=== PATIENT | female | born 1930 | race Caucasian/White ===

== ENCOUNTER 2016-04-19 23:35 | Emergency (ER) | payer MEDICARE, OTHER ==
[~2016-04-19] VITALS: Ht 154.9 cm; Wt 52.7 kg
[~2016-04-19 23:35] MED LIST: ENOX40DI9 SQ; GLIP5 PO; HYDR-3965 PO; INSNOV SQ; LISI-662 PO; METF10002 PO; MUPI1OIN4 NS; TEAROS OU; [UNRECOGNIZED DRUG - CODE] PO
[2016-04-20 00:29] LABS: BASOPHILS % (AUTO) 0.3 % (0.0-2.0); EOSINOPHILS % (AUTO) 0.8 % (1.0-6.0); HEMATOCRIT 33.6 % (36-46); HEMOGLOBIN 10.7 g/dL (12.0-16.0); LYMPHOCYTES # (AUTO) 2.2 K/uL (1.0-4.8); LYMPHOCYTES % (AUTO) 17.3 % (22.0-44.0); MEAN CORPUSCULAR HEMOGLOBIN 26.2 pg (26.0-34.0); MEAN CORPUSCULAR HGB CONC 31.9 G/dL (31.0-37.0); MEAN CORPUSCULAR VOLUME 82 fL (80-100); MONOCYTES # (AUTO) 1.1 K/uL (0.1-1.0); MONOCYTES % (AUTO) 8.9 % (2.0-9.0); NEUTROPHILS # (AUTO) 9.2 K/uL (1.8-7.7); NEUTROPHILS % (AUTO) 72.7 % (40.0-70.0); PLATELET COUNT (AUTO) 458 K/uL (150-450); RED CELL DISTRIBUTION WIDTH 13.9 % (11.5-14.5); WHITE BLOOD COUNT (AUTO) 12.7 K/uL (4.5-11.0)
[2016-04-20 00:31] LABS: ANION GAP 7 mmol/L (8-16); CALCIUM, TOTAL 9.2 mg/dL (8.8-10.5); CARBON DIOXIDE 32 mmol/L (22-29); CHLORIDE 99 mmol/L (98-107); CREATININE 1.57 mg/dL (0.60-1.30); GLOMERULAR FILTR. RATE CALC 31 mL/min (>60); POTASSIUM 3.9 mmol/L (3.5-5.1); SODIUM SERUM 138 mmol/L (136-145); UREA NITROGEN, BLOOD 15 mg/dL (7-18)
[2016-04-20 00:32] LABS: INR 0.9 (0.9-1.1)
[2016-04-20 00:47] LABS: B-TYPE NATRIURETIC PEPTIDE 110 pg/mL (0-100)
[2016-04-20 00:54] LABS: APPEARANCE,URINE CLEAR (CLEAR); GLUCOSE, URINE (UA) NEGATIVE (NEGATIVE); KETONES,URINE NEGATIVE (NEGATIVE); LEUKOCYTE ESTERASE ,URINE MODERATE (NEGATIVE); OCCULT BLOOD,URINE NEGATIVE (NEGATIVE); PH,URINE 7.5 (5.0-8.0); PROTEIN,URINE NEGATIVE (NEGATIVE)
[2016-04-20 00:55] LABS: ALANINE AMINOTRANSFERASE 16 U/L (12-78); ALBUMIN 3.7 g/dL (3.4-5.0); ASPARTATE AMINOTRANSFERASE 12 U/L (15-37); CREATINE KINASE MB 1.9 ng/mL (0-5); CREATINE KINASE, TOTAL 81 U/L (26-192); TOTAL PROTEIN, SERUM 7.8 g/dL (6.4-8.2)
[2016-04-20 01:09] LABS: BILIRUBIN,TOTAL 0.2 mg/dL (0.1-1.0)
[2016-04-20 01:10] LABS: ADD UA MICROSCOPIC YES
[2016-04-20 01:20] LABS: RBC,URINE 0-2 /HPF (0-2); SQUAMOUS EPITHELIAL CELL,UR Few /LPF (None Seen)
[2016-04-20 02:01] VITALS: BP 117/64
== END 2016-04-20 04:00 | disposition home or self-care (01) ==
LOC: EMS 23:38
DX: I20.8 Other forms of angina pectoris (principal); N39.0 Urinary tract infection, site not specified; I10 Essential (primary) hypertension; E11.9 Type 2 diabetes mellitus without complications; Z79.4 Long term (current) use of insulin
CPT/HCPCS: 82962; 87086; 93005; 99285

== ENCOUNTER 2016-05-01 20:04 | Inpatient (IN) | payer MEDICARE, OTHER ==
[~2016-05-01] VITALS: Ht 157.5 cm; Wt 53.0 kg
[~2016-05-01 20:04] MED LIST changes: -HYDR-3965 PO; -MUPI1OIN4 NS; -TEAROS OU
[2016-05-01] MEDS ORDERED: SITA25 PO (20:20)
[2016-05-01] MEDS ORDERED: LORA0.5T83 PO (20:20)
[2016-05-01] MEDS ORDERED: HYDR-4172 PO (20:20)
[2016-05-01 20:37] LABS: GLUCOSE,POINT OF CARE 206 MG/DL (70-110)
[2016-05-01 20:45] LABS: BASOPHILS % (AUTO) 0.7 % (0.0-2.0); EOSINOPHILS % (AUTO) 1.4 % (1.0-6.0); LYMPHOCYTES # (AUTO) 1.6 K/uL (1.0-4.8); LYMPHOCYTES % (AUTO) 19.6 % (22.0-44.0); MEAN CORPUSCULAR HEMOGLOBIN 26.9 pg (26.0-34.0); MEAN CORPUSCULAR HGB CONC 33.2 G/dL (31.0-37.0); MEAN CORPUSCULAR VOLUME 81 fL (80-100); MONOCYTES # (AUTO) 0.7 K/uL (0.1-1.0); NEUTROPHILS # (AUTO) 5.8 K/uL (1.8-7.7); NEUTROPHILS % (AUTO) 70.3 % (40.0-70.0); PLATELET COUNT (AUTO) 428 K/uL (150-450); RED CELL DISTRIBUTION WIDTH 14.1 % (11.5-14.5); WHITE BLOOD COUNT (AUTO) 8.3 K/uL (4.5-11.0)
[2016-05-01 20:54] LABS: CALCIUM, TOTAL 8.6 mg/dL (8.8-10.5); CREATININE 1.47 mg/dL (0.60-1.30); POTASSIUM 3.9 mmol/L (3.5-5.1)
[2016-05-01 21:02] LABS: LACTIC ACID 0.8 mmol/L (0.4-2.0)
[2016-05-01 21:09] LABS: ALBUMIN 3.3 g/dL (3.4-5.0); BILIRUBIN,TOTAL 0.2 mg/dL (0.1-1.0); TOTAL PROTEIN, SERUM 7.1 g/dL (6.4-8.2)
[2016-05-02 00:55] VITALS: BP 156/81
[2016-05-02] MEDS ORDERED: NITROGLYCERIN 2% (1 GM=INCH) PACKET TP PRN (01:30)
[2016-05-02] MEDS ORDERED: ZOLPIDEM TARTRATE 10 MG TABLET PO PRN (01:30)
[2016-05-02] MEDS ORDERED: ONDANSETRON HCL 4 MG/2 ML VIAL IVP PRN (01:30)
[2016-05-02] MEDS ORDERED: LORazepam 1 MG TABLET PO PRN (01:30)
[2016-05-02] MEDS ORDERED: NITROGLYCERIN 0.4 MG SUBLINGUAL TABLET #25 SL PRN (01:30)
[2016-05-02] MEDS ORDERED: INSULIN ASPART 100 UNITS/ML SQ PRN (01:30)
[2016-05-02] MEDS ORDERED: ACETAMINOPHEN 325 MG TABLET PO PRN (01:30)
[2016-05-02] MEDS ORDERED: MORPHINE SULFATE 2 MG/ML SYRINGE IVP PRN (01:30)
[2016-05-02] MEDS ORDERED: DEXTROSE 50%-WATER 25 GM/50 ML SYRINGE IVP PRN (01:30)
[2016-05-02] MEDS: LORazepam 0.5 MG TABLET PO SCH ×2 (02:20→09:33)
[2016-05-02] MEDS: CALCIUM OYSTER SHELL 250 MG-VIT D3 125 UNITS TABLET PO SCH ×2 (02:20→09:33)
[2016-05-02] MEDS: HydrALAZINE HCL 10 MG TABLET PO SCH ×2 (02:20→09:33)
[2016-05-02 04:39] VITALS: BP 136/73
[2016-05-02 07:48] VITALS: BP 156/87
[2016-05-02] MEDS ORDERED: ENOXAPARIN SODIUM 40 MG/0.4 ML PF SYRINGE SQ SCH (09:00)
[2016-05-02] MEDS ORDERED: LISINOPRIL 20 MG TABLET PO SCH (09:00)
[2016-05-02] MEDS ORDERED: IBUP-1546 PO ×2 (11:35→11:36)
[2016-05-02 11:37] VITALS: BP 142/82
[2016-05-02 11:37] LABS: GLUCOSE, URINE (UA) NEGATIVE (NEGATIVE); KETONES,URINE NEGATIVE (NEGATIVE); LEUKOCYTE ESTERASE ,URINE NEGATIVE (NEGATIVE); OCCULT BLOOD,URINE NEGATIVE (NEGATIVE); PROTEIN,URINE NEGATIVE (NEGATIVE)
[2016-05-02 11:41] LABS: APPEARANCE,URINE HAZY (CLEAR)
[2016-05-02 11:42] LABS: RBC,URINE None Seen /HPF (0-2)
[2016-05-02 11:44] LABS: SQUAMOUS EPITHELIAL CELL,UR Rare /LPF (None Seen); WBC,URINE 0-2 /HPF (0-5)
[2016-05-04 06:21] LABS: GLUCOSE COMMENT 1 Received Meds; GLUCOSE,POINT OF CARE 205 MG/DL (70-110)
== END 2016-05-02 11:45 | disposition home or self-care (01) | DRG 206 ==
LOC: EMS 20:08 → 5N 23:05
PROVIDERS: ADMIT Internal Medicine; ATTEND Internal Medicine
DX: M94.0 Chondrocostal junction syndrome [Tietze] (principal); E44.0 Moderate protein-calorie malnutrition; I10 Essential (primary) hypertension; E11.9 Type 2 diabetes mellitus without complications; M19.90 Unspecified osteoarthritis, unspecified site; J44.9 Chronic obstructive pulmonary disease, unspecified; E86.0 Dehydration; D64.9 Anemia, unspecified; F41.9 Anxiety disorder, unspecified; Z68.21 Body mass index [BMI] 21.0-21.9, adult; Z79.899 Other long term (current) drug therapy; Z79.4 Long term (current) use of insulin; Z98.890 Other specified postprocedural states
CPT/HCPCS: 80307; 82962; 83605; 93005; 93306; 99285; J1650

== ENCOUNTER 2016-05-07 02:07 | Emergency (ER) | payer MEDICARE, OTHER ==
[~2016-05-07] VITALS: Ht 157.5 cm; Wt 46.0 kg
[~2016-05-07 02:07] MED LIST changes: -ENOX40DI9 SQ; +HYDR-4172 PO; +IBUP-1546 PO; -INSNOV SQ; +LORA0.5T83 PO; +SITA25 PO
[2016-05-07 02:26] LABS: GLUCOSE COMMENT 1 Doctor Notified; GLUCOSE,POINT OF CARE 211 MG/DL (70-110)
[2016-05-07] MEDS ORDERED: PERTUSS(ACELL),DIPH,TET VAC/PF 0.5 ML VIAL IM ONE (03:30)
[2016-05-07] MEDS ORDERED: ACETAMINOPHEN 500 MG TABLET ONE (03:36)
[2016-05-07] MEDS ORDERED: ACETAMINOPHEN 500 MG TABLET PO ONE (03:45)
[2016-05-07 04:14] VITALS: BP 155/73
== END 2016-05-07 05:15 | disposition home or self-care (01) ==
LOC: EMS 02:09
DX: S01.01XA Laceration without foreign body of scalp, initial encounter (principal); E11.65 Type 2 diabetes mellitus with hyperglycemia; I10 Essential (primary) hypertension; M19.90 Unspecified osteoarthritis, unspecified site; W01.0XXA Fall on same level from slipping, tripping and stumbling without subsequent striking against object, initial encounter; Y93.89 Activity, other specified; Y92.89 Other specified places as the place of occurrence of the external cause; Y99.8 Other external cause status
CPT/HCPCS: 12002; 70450; 82962; 90471; 90715; 99284